=== PATIENT | female | born 1995 | race Caucasian/White ===

== ENCOUNTER 2020-05-01 22:40 | Emergency (ER) | payer OTHER ==
[~2020-05-01] VITALS: Ht 157.5 cm; Wt 71.2 kg
[2020-05-01 23:39] VITALS: Ht 157.5 cm; Wt 71.2 kg
[2020-05-02 00:51] LABS: BASOPHIL % 0.5 % (0-2); PLATELET COUNT 151 x10^3mcL (130-400)
[2020-05-02 01:01] LABS: RED CELL DISTRIBUTION WIDTH 19.2 % (11.5-14.5)
[2020-05-02 01:27] LABS: ALBUMIN 3.8 g/dL (3.4-5.0); ALKALINE PHOSPHATASE 51 U/L (46-116); ALT/SGPT 14 U/L (14-59); AST/SGOT 12 U/L (15-37); CALCIUM 8.9 mg/dL (8.5-10.1); CARBON DIOXIDE 24.4 mmol/L (21-32); CREATININE SERUM 0.7 mg/dL (0.6-1.0); GFR1 > 60 mL/min; GLUCOSE SERUM 89 mg/dL (74-106); TOTAL PROTEIN, SERUM 6.9 g/dL (6.4-8.2)
[2020-05-02 01:42] LABS: CHLORIDE SERUM 104 mmol/L (98-107); POTASSIUM SERUM 3.7 mmol/L (3.5-5.1); SODIUM SERUM 138 mmol/L (136-145)
[2020-05-02 06:13] VITALS: BP 113/61
== END 2020-05-02 06:10 | disposition home or self-care (01) ==
LOC: ED 22:40
PROVIDERS: Specialist
DX: D50.0 Iron deficiency anemia secondary to blood loss (chronic) (principal); N92.1 Excessive and frequent menstruation with irregular cycle; Z41.1 Encounter for cosmetic surgery; Z98.890 Other specified postprocedural states
CPT/HCPCS: J7030; J7040; P9016